=== PATIENT | male | born 1965 | race Caucasian/White ===

== ENCOUNTER 2025-08-28 02:14 | Inpatient (IN) | payer MEDICARE, OTHER ==
[~2025-08-28] VITALS: Ht 175.3 cm; Wt 69.5 kg
[2025-08-28] MEDS ORDERED: METHADONE HCL 10 MG TABLET ONE (05:26)
[2025-08-28 05:34] LABS: PLATELET COUNT (AUTO) 141 K/uL (150-450); RED BLOOD CELL COUNT(AUTO) 4.68 MIL/uL (4.50-5.90); RED CELL DISTRIBUTION WIDTH 15.8 % (11.5-14.5); WHITE BLOOD COUNT (AUTO) 3.1 K/uL (4.5-11.0)
[2025-08-28 05:38] LABS: RBC MORPHOLOGY COMMENT ABNORMAL RBC MORPH
[2025-08-28] MEDS: SODIUM CHLORIDE 0.9% 1,000 ML IV ONE (05:39)
[2025-08-28] MEDS: METHADONE HCL 10 MG TABLET PO ONE (05:39)
[2025-08-28 05:50] LABS: CALCIUM, TOTAL 8.7 mg/dL (8.8-10.5); CREATININE 0.64 mg/dL (0.60-1.30); GLOMERULAR FILTR. RATE CALC > 60 mL/min (>60); GLUCOSE,RANDOM 344 mg/dL (70-110); SODIUM SERUM 132 mmol/L (136-145); UREA NITROGEN, BLOOD 13 mg/dL (7-18)
[2025-08-28] MEDS: INSULIN REGULAR, HUMAN 100 UNITS/ML SQ ONE (06:55)
[2025-08-28] MEDS: SODIUM CHLORIDE 0.9% 2,400 ML IV ONE (06:58)
[2025-08-28 07:24] LABS: APPEARANCE,URINE CLEAR (CLEAR); GLUCOSE, URINE (UA) >=1000 mg/dL (NEGATIVE); LEUKOCYTE ESTERASE ,URINE NEGATIVE (NEGATIVE); NITRATE,URINE NEGATIVE (NEGATIVE); OCCULT BLOOD,URINE SMALL (NEGATIVE); SPECIFIC GRAVITIY, URINE 1.034 (1.003-1.030)
[2025-08-28] MEDS ORDERED: ALPR-709 PO (07:50)
[2025-08-28] MEDS ORDERED: DEXTROSE 50%-WATER 25 GM/50 ML SYRINGE IVP PRN (08:45)
[2025-08-28] MEDS: DOCUSATE SODIUM 100 MG CAPSULE PO SCH (09:47)
[2025-08-28] MEDS: RINGERS SOLUTION,LACTATED 1,000 ML IV ONE (09:48)
[2025-08-28] MEDS: INSULIN GLARGINE,HUM.REC.ANLOG 100 UNITS/ML SQ SCH (09:53)
[2025-08-28 10:33] LABS: GLUCOMETER DEV NAME(LOC) ER.7; GLUCOSE,POINT OF CARE 239 MG/DL (70-110)
[2025-08-28] MEDS: ACETAMINOPHEN 325 MG TABLET PO PRN (14:44)
[2025-08-28] MEDS: HEPARIN SODIUM,PORCINE 5,000 UNITS/ML VIAL SQ SCH (15:42)
[2025-08-28 16:21] VITALS: BP 154/81; PULSE 54; RESP 19; TEMP 97.7; O2SAT 98
[2025-08-28] MEDS: INSULIN LISPRO 100 UNITS/ML SQ PRN (17:53)
[2025-08-28] MEDS: ONDANSETRON HCL 4 MG/2 ML VIAL IVP PRN (19:43)
[2025-08-28 20:04] VITALS: BP 158/72; PULSE 51; RESP 18; TEMP 97.7; O2SAT 97
[2025-08-28] MEDS: GABAPENTIN 300 MG CAPSULE PO ONE (21:02)
[2025-08-28] MEDS: PROCHLORPERAZINE EDISYLATE 5 MG/ML 2 ML VIAL IVP ONE (21:27)
[2025-08-28 23:36] LABS: GLUCOMETER DEV NAME(LOC) 6N.1C; GLUCOSE,POINT OF CARE 261 MG/DL (70-110)
[2025-08-28 23:36] LABS: GLUCOMETER DEV NAME(LOC) 6N.1C; GLUCOSE,POINT OF CARE 235 MG/DL (70-110)
[2025-08-29 08:00] VITALS: BP 155/78; PULSE 66; RESP 20; TEMP 99.1; O2SAT 98
[2025-08-29 08:59] LABS: PLATELET COUNT (AUTO) 178 K/uL (150-450); RED BLOOD CELL COUNT(AUTO) 4.98 MIL/uL (4.50-5.90); RED CELL DISTRIBUTION WIDTH 16.1 % (11.5-14.5); WHITE BLOOD COUNT (AUTO) 5.5 K/uL (4.5-11.0)
[2025-08-29 09:17] LABS: CALCIUM, TOTAL 8.5 mg/dL (8.8-10.5); CREATININE 0.50 mg/dL (0.60-1.30); GLOMERULAR FILTR. RATE CALC > 60 mL/min (>60); GLUCOSE,RANDOM 259 mg/dL (70-110); SODIUM SERUM 135 mmol/L (136-145); UREA NITROGEN, BLOOD 10 mg/dL (7-18)
[2025-08-29 10:09] LABS: RBC MORPHOLOGY COMMENT ABNORMAL RBC MORPH
[2025-08-29] MEDS: SODIUM CHLORIDE 0.9% 1,000 ML IV SCH (10:53)
[2025-08-29 13:45] LABS: GLUCOMETER DEV NAME(LOC) 6N.1C; GLUCOSE,POINT OF CARE 322 MG/DL (70-110)
[2025-08-29 18:51] LABS: GLUCOMETER DEV NAME(LOC) 6N.1C; GLUCOSE,POINT OF CARE 211 MG/DL (70-110)
[2025-08-29 20:00] VITALS: BP 158/73; PULSE 60; RESP 18; TEMP 98.4; O2SAT 100
[2025-08-30] MEDS ORDERED: SODIUM CHLORIDE 0.9% 250 ML IV ONE (00:13)
[2025-08-30] MEDS: LORazepam 2 MG/ML VIAL IVP ONE (00:54)
[2025-08-30] MEDS ORDERED: ZOLPIDEM TARTRATE 10 MG TABLET PO PRN (01:00)
[2025-08-30 04:00] VITALS: BP 159/80; PULSE 65; RESP 20; TEMP 98.3; O2SAT 95
[2025-08-30 07:10] LABS: GLUCOMETER DEV NAME(LOC) 6N.1C; GLUCOSE,POINT OF CARE 227 MG/DL (70-110)
[2025-08-30 07:10] LABS: GLUCOMETER DEV NAME(LOC) 6N.1C; GLUCOSE,POINT OF CARE 285 MG/DL (70-110)
[2025-08-30 07:18] LABS: PLATELET COUNT (AUTO) 217 K/uL (150-450); RED BLOOD CELL COUNT(AUTO) 5.74 MIL/uL (4.50-5.90); RED CELL DISTRIBUTION WIDTH 16.3 % (11.5-14.5); WHITE BLOOD COUNT (AUTO) 6.9 K/uL (4.5-11.0)
[2025-08-30 07:29] LABS: CALCIUM, TOTAL 9.0 mg/dL (8.8-10.5); CREATININE 0.61 mg/dL (0.60-1.30); GLOMERULAR FILTR. RATE CALC > 60 mL/min (>60); GLUCOSE,RANDOM 241 mg/dL (70-110); SODIUM SERUM 137 mmol/L (136-145); UREA NITROGEN, BLOOD 21 mg/dL (7-18)
[2025-08-30 07:53] LABS: RBC MORPHOLOGY COMMENT ABNORMAL RBC MORPH
[2025-08-30] MEDS ORDERED: INSULIN REGULAR, HUMAN 100 UNITS/ML IVP PRN (10:15)
[2025-08-30] MEDS ORDERED: POTASSIUM CHLORIDE 40 MEQ in SODIUM CHLORIDE 0.45% 1,000 ML IV PRN (10:15)
[2025-08-30] MEDS ORDERED: POTASSIUM CHL 20 MEQ/0.45% NS 1,000 ML IV PRN (10:15)
[2025-08-30] MEDS ORDERED: SODIUM CHLORIDE 0.45% 1,000 ML IV PRN (10:15)
[2025-08-30] MEDS ORDERED: SODIUM CHLORIDE 0.9% 500 ML IV ONE ×3 (10:15→12:30)
[2025-08-30] MEDS ORDERED: INSULIN REGULAR, HUMAN 100 UNITS/ML IVP ONE (10:15)
[2025-08-30] MEDS ORDERED: DEXTROSE 50%-WATER 25 GM/50 ML SYRINGE IVP PRN ×2 (10:15→16:45)
[2025-08-30 10:47] LABS: PLATELET COUNT (AUTO) 206 K/uL (150-450); RED BLOOD CELL COUNT(AUTO) 5.60 MIL/uL (4.50-5.90); RED CELL DISTRIBUTION WIDTH 16.5 % (11.5-14.5); WHITE BLOOD COUNT (AUTO) 6.6 K/uL (4.5-11.0)
[2025-08-30 10:53] LABS: CALCIUM, TOTAL 8.6 mg/dL (8.8-10.5); CREATININE 0.58 mg/dL (0.60-1.30); GLOMERULAR FILTR. RATE CALC > 60 mL/min (>60); GLUCOSE,RANDOM 261 mg/dL (70-110); SODIUM SERUM 137 mmol/L (136-145); UREA NITROGEN, BLOOD 24 mg/dL (7-18)
[2025-08-30 10:58] LABS: ASPARTATE AMINOTRANSFERASE 24 U/L (15-37); TOTAL PROTEIN, SERUM 9.0 g/dL (6.4-8.2)
[2025-08-30 11:00] LABS: ABG METHEMOGLOBIN 0.2 % (0.0-1.5); FRACTIONATED INSPIRED OXYGEN 21.0 % (21-100.0); SOURCE, BLOOD GAS ARTERIAL; TEMPERATURE, FAHRENHEIT, BG 98.2 FAHREN (96.0-98.6)
[2025-08-30] MEDS: SODIUM CHLORIDE 0.9% 1,000 ML IV SCH (11:05)
[2025-08-30 11:09] LABS: ABG BASE EXCESS -6.8 mmol/L (-2.0-3.0); ABG CARBOXYHEMOGLOBIN 1.1 % (0.5-1.5); ABG HCO3 20.3 mmol/L (21.0-28.0); ABG OXYGEN CONTENT 20.0 mL/dL (15.0-23.0); ABG OXYGEN SATURATION 98.0 % (94.0-98.0); ABG OXYHEMOGLOBIN 96.7 % (94.0-98.0); ABG PCO2 27 mmHg (32.0-48.0); ABG PH 7.429 (7.350-7.450); ABG TOTAL HEMOGLOBIN 14.6 G/dL (13.5-17.5); PO2, ARTERIAL BG 105.0 mmHg (83.0-108.0)
[2025-08-30 11:11] LABS: ABG A-A DIFF O2 12.4 mmHg (10-20.0); ALLEN TEST, BLOOD GAS Positive; O2 DEVICE,BLOOD GAS ROOM AIR (ROOM AIR); SITE, BLOOD GAS LFT RADIAL
[2025-08-30 11:12] LABS: PATIENT RATE, BG 24.0 min.
[2025-08-30] MEDS ORDERED: DEXMEDETOMIDINE 400 MCG/NS 100 ML IV ONE (11:26)
[2025-08-30] MEDS: DEXMEDETOMIDINE 400 MCG/NS 100 ML IV PRN (11:31)
[2025-08-30] MEDS: INSULIN REGULAR, HUMAN 100 UNITS in SODIUM CHLORIDE 0.9% 99 ML IV PRN (11:44)
[2025-08-30] MEDS: POTASSIUM CHL 10 MEQ/WATER 50 ML IV PRN (11:48)
[2025-08-30 12:00] VITALS: BP 185/98; PULSE 77; PULSE 85; RESP 23; TEMP 98.2; O2SAT 100
[2025-08-30 12:30] LABS: GLUCOMETER DEV NAME(LOC) ICUN.7; GLUCOSE,POINT OF CARE 255 MG/DL (70-110)
[2025-08-30 12:30] LABS: GLUCOMETER DEV NAME(LOC) ICUN.7; GLUCOSE,POINT OF CARE 263 MG/DL (70-110)
[2025-08-30] MEDS: DEXTROSE 5%-0.45% SODIUM CHL 1,000 ML IV PRN (13:00)
[2025-08-30 14:35] LABS: GLUCOMETER DEV NAME(LOC) 6N.2C; GLUCOSE,POINT OF CARE 247 MG/DL (70-110)
[2025-08-30 15:39] LABS: CALCIUM, TOTAL 8.3 mg/dL (8.8-10.5); CREATININE 0.52 mg/dL (0.60-1.30); GLOMERULAR FILTR. RATE CALC > 60 mL/min (>60); GLUCOSE,RANDOM 75 mg/dL (70-110); SODIUM SERUM 141 mmol/L (136-145); UREA NITROGEN, BLOOD 22 mg/dL (7-18)
[2025-08-30 15:42] LABS: PHOSPHORUS 2.4 mg/dL (2.5-4.9)
[2025-08-30 16:00] VITALS: BP 150/77; PULSE 63; PULSE 64; RESP 24; TEMP 99.6; O2SAT 100
[2025-08-30 16:41] LABS: GLUCOMETER DEV NAME(LOC) ICU.S7; GLUCOSE,POINT OF CARE 213 MG/DL (70-110)
[2025-08-30 16:41] LABS: GLUCOMETER DEV NAME(LOC) ICU.S7; GLUCOSE,POINT OF CARE 75 MG/DL (70-110)
[2025-08-30 16:41] LABS: GLUCOMETER DEV NAME(LOC) ICU.S7; GLUCOSE,POINT OF CARE 81 MG/DL (70-110)
[2025-08-30 16:41] LABS: GLUCOMETER DEV NAME(LOC) ICU.S7; GLUCOSE,POINT OF CARE 122 MG/DL (70-110)
[2025-08-30] MEDS ORDERED: POTASSIUM CHLORIDE 40 MEQ in SODIUM CHLORIDE 0.45% 1,000 ML IV ONE (17:00)
[2025-08-30] MEDS: POTASSIUM CHLORIDE 40 MEQ in SODIUM CHLORIDE 0.45% 1,000 ML IV SCH (17:05)
[2025-08-30 17:46] LABS: GLUCOMETER DEV NAME(LOC) ICU.S7; GLUCOSE,POINT OF CARE 111 MG/DL (70-110)
[2025-08-30 19:25] LABS: CALCIUM, TOTAL 8.0 mg/dL (8.8-10.5); CREATININE 0.57 mg/dL (0.60-1.30); GLOMERULAR FILTR. RATE CALC > 60 mL/min (>60); GLUCOSE,RANDOM 182 mg/dL (70-110); PHOSPHORUS 3.8 mg/dL (2.5-4.9); SODIUM SERUM 139 mmol/L (136-145); UREA NITROGEN, BLOOD 24 mg/dL (7-18)
[2025-08-30] MEDS: INSULIN LISPRO 100 UNITS/ML SQ PRN (19:40)
[2025-08-30 19:46] LABS: GLUCOMETER DEV NAME(LOC) ICU.S7; GLUCOSE,POINT OF CARE 209 MG/DL (70-110)
[2025-08-30 20:00] VITALS: BP 168/88; PULSE 58; RESP 29; TEMP 97.8; O2SAT 100
[2025-08-30] MEDS: ETHYL ALCOHOL 62% ANTISEPTIC NASAL SANITIZER 0.6 ML AMPUL NASAL SCH (20:02)
[2025-08-30 20:55] LABS: GLUCOMETER DEV NAME(LOC) 6N.1C; GLUCOSE,POINT OF CARE 260 MG/DL (70-110)
[2025-08-30] MEDS ORDERED: ZOLPIDEM TARTRATE 5 MG TABLET PO PRN (20:57)
[2025-08-30 23:42] LABS: CALCIUM, TOTAL 8.2 mg/dL (8.8-10.5); CREATININE 0.57 mg/dL (0.60-1.30); GLOMERULAR FILTR. RATE CALC > 60 mL/min (>60); GLUCOSE,RANDOM 193 mg/dL (70-110); SODIUM SERUM 138 mmol/L (136-145); UREA NITROGEN, BLOOD 22 mg/dL (7-18)
[2025-08-30 23:46] LABS: PHOSPHORUS 3.3 mg/dL (2.5-4.9)
[2025-08-30 23:46] LABS: GLUCOMETER DEV NAME(LOC) ICU.S7; GLUCOSE,POINT OF CARE 191 MG/DL (70-110)
[2025-08-31] VITALS: BP 166/93; PULSE 56; RESP 20; TEMP 98; O2SAT 100
[2025-08-31] MEDS: POTASSIUM CHL 10 MEQ/WATER 50 ML IV PRN (00:27)
[2025-08-31] MEDS: SODIUM CHLORIDE 0.9% 1,000 ML IV SCH (00:57)
[2025-08-31 04:00] VITALS: BP 177/67; PULSE 62; RESP 22; TEMP 97.8; O2SAT 100
[2025-08-31 05:36] LABS: GLUCOMETER DEV NAME(LOC) ICUN.7; GLUCOSE,POINT OF CARE 171 MG/DL (70-110)
[2025-08-31 06:06] LABS: PLATELET COUNT (AUTO) 150 K/uL (150-450); RED BLOOD CELL COUNT(AUTO) 5.23 MIL/uL (4.50-5.90); RED CELL DISTRIBUTION WIDTH 16.3 % (11.5-14.5); WHITE BLOOD COUNT (AUTO) 4.7 K/uL (4.5-11.0)
[2025-08-31 06:14] LABS: RBC MORPHOLOGY COMMENT ABNORMAL RBC MORPH
[2025-08-31 06:16] LABS: CALCIUM, TOTAL 7.8 mg/dL (8.8-10.5); CREATININE 0.60 mg/dL (0.60-1.30); GLOMERULAR FILTR. RATE CALC > 60 mL/min (>60); GLUCOSE,RANDOM 194 mg/dL (70-110); SODIUM SERUM 138 mmol/L (136-145); UREA NITROGEN, BLOOD 20 mg/dL (7-18)
[2025-08-31 08:00] VITALS: BP 173/91; PULSE 59; RESP 20; TEMP 98.1; O2SAT 100
[2025-08-31] MEDS: *CLINICAL-PERIPHERAL PARENTERAL NUTRITION DOSING CLINICAL ONE (10:21)
[2025-08-31 12:00] VITALS: BP 174/95; PULSE 79; PULSE 91; RESP 18; TEMP 98.8; O2SAT 100
[2025-08-31 12:26] LABS: GLUCOMETER DEV NAME(LOC) ICUN.7; GLUCOSE,POINT OF CARE 212 MG/DL (70-110)
[2025-08-31 15:34] LABS: CALCIUM, TOTAL 8.6 mg/dL (8.8-10.5); CREATININE 0.55 mg/dL (0.60-1.30); GLOMERULAR FILTR. RATE CALC > 60 mL/min (>60); GLUCOSE,RANDOM 237 mg/dL (70-110); SODIUM SERUM 136 mmol/L (136-145); UREA NITROGEN, BLOOD 23 mg/dL (7-18)
[2025-08-31 15:37] LABS: PHOSPHORUS 3.4 mg/dL (2.5-4.9)
[2025-08-31 16:00] VITALS: BP 168/92; PULSE 85; RESP 12; TEMP 98.1; O2SAT 100
[2025-08-31 17:30] LABS: GLUCOMETER DEV NAME(LOC) 5N.2C; GLUCOSE,POINT OF CARE 236 MG/DL (70-110)
[2025-08-31 19:45] VITALS: BP 157/79; PULSE 88; RESP 16; TEMP 97.7; O2SAT 97
[2025-08-31 20:41] LABS: CALCIUM, TOTAL 8.4 mg/dL (8.8-10.5); CREATININE 0.75 mg/dL (0.60-1.30); GLOMERULAR FILTR. RATE CALC > 60 mL/min (>60); GLUCOSE,RANDOM 248 mg/dL (70-110); SODIUM SERUM 135 mmol/L (136-145); UREA NITROGEN, BLOOD 27 mg/dL (7-18)
[2025-08-31 21:07] LABS: PHOSPHORUS 3.3 mg/dL (2.5-4.9)
[2025-08-31 23:40] LABS: CALCIUM, TOTAL 8.4 mg/dL (8.8-10.5); CREATININE 0.56 mg/dL (0.60-1.30); GLOMERULAR FILTR. RATE CALC > 60 mL/min (>60); GLUCOSE,RANDOM 255 mg/dL (70-110); SODIUM SERUM 135 mmol/L (136-145); UREA NITROGEN, BLOOD 27 mg/dL (7-18)
[2025-09-01 00:28] LABS: PHOSPHORUS 3.6 mg/dL (2.5-4.9)
[2025-09-01 00:29] VITALS: BP 168/87; PULSE 86; RESP 18; TEMP 97.9; O2SAT 99
[2025-09-01] MEDS: PPN SOLUTION 1 EA, SODIUM CHLORIDE 70 MEQ, SODIUM PHOS,M-BASIC-D-BASIC 30 MEQ, POTASSIU... IV SCH (01:44)
[2025-09-01 03:36] VITALS: BP 181/93; PULSE 90; RESP 17; TEMP 98.1; O2SAT 98
[2025-09-01 06:01] LABS: GLUCOMETER DEV NAME(LOC) 5N.2C; GLUCOSE,POINT OF CARE 265 MG/DL (70-110)
[2025-09-01 07:32] LABS: PLATELET COUNT (AUTO) 180 K/uL (150-450); RED BLOOD CELL COUNT(AUTO) 5.82 MIL/uL (4.50-5.90); RED CELL DISTRIBUTION WIDTH 16.7 % (11.5-14.5); WHITE BLOOD COUNT (AUTO) 7.1 K/uL (4.5-11.0)
[2025-09-01 07:56] LABS: CALCIUM, TOTAL 8.6 mg/dL (8.8-10.5); CREATININE 0.68 mg/dL (0.60-1.30); GLOMERULAR FILTR. RATE CALC > 60 mL/min (>60); GLUCOSE,RANDOM 303 mg/dL (70-110); SODIUM SERUM 134 mmol/L (136-145); UREA NITROGEN, BLOOD 32 mg/dL (7-18)
[2025-09-01 07:59] LABS: PHOSPHORUS 3.6 mg/dL (2.5-4.9)
[2025-09-01 08:31] VITALS: BP 174/87; PULSE 92; RESP 18; TEMP 97.7; O2SAT 98
[2025-09-01 10:02] LABS: PH,URINE DRUG SCREEN 5.5 (5.0-8.0)
[2025-09-01 10:12] LABS: ALCOHOL, URINE DRUG SCREEN NEGATIVE (NEGATIVE); AMPHET/METH SCREEN,URINE NEGATIVE (NEGATIVE); BARBITURATE SCREEN, URINE NEGATIVE (NEGATIVE); CANNABINOID SCREEN,URINE NEGATIVE (NEGATIVE); COCAINE SCREEN,URINE NEGATIVE (NEGATIVE); METHADONE SCREEN, URINE NEGATIVE (NEGATIVE)
[2025-09-01 10:45] LABS: GLUCOMETER DEV NAME(LOC) 5N.1D; GLUCOSE,POINT OF CARE 275 MG/DL (70-110)
[2025-09-01 11:46] VITALS: BP 176/100; PULSE 91; RESP 20; TEMP 97.7; O2SAT 96
[2025-09-01 14:36] LABS: GLUCOMETER DEV NAME(LOC) 5N.2C; GLUCOSE,POINT OF CARE 347 MG/DL (70-110)
[2025-09-01 16:22] VITALS: BP 170/82; PULSE 89; RESP 20; TEMP 97.9; O2SAT 96
[2025-09-01 18:15] LABS: GLUCOMETER DEV NAME(LOC) 5N.1D; GLUCOSE,POINT OF CARE 336 MG/DL (70-110)
[2025-09-01 20:20] VITALS: BP 140/99; PULSE 95; RESP 19; TEMP 97.7; O2SAT 97
[2025-09-01 22:01] LABS: GLUCOMETER DEV NAME(LOC) 5N.1D; GLUCOSE,POINT OF CARE 325 MG/DL (70-110)
[2025-09-01] MEDS: SODIUM CHLORIDE IV SCH (23:13)
[2025-09-01] MEDS: SODIUM PHOS M BASIC D BASIC IV SCH (23:13)
[2025-09-01] MEDS: PPN IV SCH (23:13)
[2025-09-01] MEDS: [UNRECOGNIZED DRUG - OTHER] IV SCH (23:13)
[2025-09-02] VITALS (7 sets, daily range): BP systolic 146–171; BP diastolic 71–84; PULSE 77–98; RESP 18–28; TEMP 97.9–98.4; O2SAT 97–99
[2025-09-02 05:06] LABS: GLUCOMETER DEV NAME(LOC) 5N.1D; GLUCOSE,POINT OF CARE 241 MG/DL (70-110)
[2025-09-02 06:21] LABS: GLUCOMETER DEV NAME(LOC) 5N.1D; GLUCOSE,POINT OF CARE 280 MG/DL (70-110)
[2025-09-02 07:08] LABS: PHOSPHORUS 3.5 mg/dL (2.5-4.9)
[2025-09-02 07:19] LABS: CALCIUM, TOTAL 8.0 mg/dL (8.8-10.5); CREATININE 0.43 mg/dL (0.60-1.30); GLOMERULAR FILTR. RATE CALC > 60 mL/min (>60); GLUCOSE,RANDOM 287 mg/dL (70-110); SODIUM SERUM 136 mmol/L (136-145); UREA NITROGEN, BLOOD 30 mg/dL (7-18)
[2025-09-02 19:51] LABS: GLUCOMETER DEV NAME(LOC) 5S.1E; GLUCOSE,POINT OF CARE 289 MG/DL (70-110)
[2025-09-02 19:51] LABS: GLUCOMETER DEV NAME(LOC) 5S.1E; GLUCOSE,POINT OF CARE 259 MG/DL (70-110)
[2025-09-02 20:16] LABS: GLUCOMETER DEV NAME(LOC) 5S.1E; GLUCOSE,POINT OF CARE 290 MG/DL (70-110)
[2025-09-02] MEDS: INSULIN GLARGINE,HUM.REC.ANLOG 100 UNITS/ML SQ SCH (20:37)
[2025-09-03] VITALS (12 sets, daily range): BP systolic 141–175; BP diastolic 65–83; PULSE 79–98; RESP 17–28; TEMP 97.9–99.3; O2SAT 96–99
[2025-09-03] MEDS: IPRATROPIUM BROMIDE 0.5 MG/2.5 ML NEB SOLUTION NEB PRN (02:43)
[2025-09-03 06:59] LABS: CALCIUM, TOTAL 8.1 mg/dL (8.8-10.5); CREATININE 0.49 mg/dL (0.60-1.30); GLOMERULAR FILTR. RATE CALC > 60 mL/min (>60); GLUCOSE,RANDOM 268 mg/dL (70-110); SODIUM SERUM 133 mmol/L (136-145); UREA NITROGEN, BLOOD 25 mg/dL (7-18)
[2025-09-03 07:15] LABS: PHOSPHORUS 3.0 mg/dL (2.5-4.9)
[2025-09-03 08:34] LABS: PLATELET COUNT (AUTO) 148 K/uL (150-450); RED BLOOD CELL COUNT(AUTO) 4.90 MIL/uL (4.50-5.90); RED CELL DISTRIBUTION WIDTH 16.3 % (11.5-14.5); WHITE BLOOD COUNT (AUTO) 6.9 K/uL (4.5-11.0)
[2025-09-03 09:55] LABS: RBC MORPHOLOGY COMMENT ABNORMAL RBC MORPH
[2025-09-03] MEDS: *CLINICAL-LEVOFLOXACIN IVPB DOSING CLINICAL ONE (10:59)
[2025-09-03] MEDS ORDERED: SODIUM CHLORIDE 0.9% 250 ML IV ONE (11:54)
[2025-09-03] MEDS: LEVOFLOXACIN 750 MG/D5% WATER 150 ML IV SCH (12:22)
[2025-09-03] MEDS: GABAPENTIN 100 MG CAPSULE PO SCH (14:54)
[2025-09-03 20:50] LABS: GLUCOMETER DEV NAME(LOC) 5S.2E; GLUCOSE,POINT OF CARE 269 MG/DL (70-110)
[2025-09-03 20:50] LABS: GLUCOMETER DEV NAME(LOC) 5S.2E; GLUCOSE,POINT OF CARE 260 MG/DL (70-110)
[2025-09-03] MEDS: PPN IV SCH (21:58)
[2025-09-03] MEDS: SODIUM CHLORIDE IV SCH (21:58)
[2025-09-03] MEDS: SODIUM PHOS M BASIC D BASIC IV SCH (21:58)
[2025-09-03] MEDS: [UNRECOGNIZED DRUG - OTHER] IV SCH (21:58)
[2025-09-03 22:56] LABS: GLUCOMETER DEV NAME(LOC) 5N.1D; GLUCOSE,POINT OF CARE 293 MG/DL (70-110)
[2025-09-03 23:23] LABS: C.DIFF GDH ANTIGEN, Stool Positive (Negative); C.DIFF TOXINS A&B, Stool Negative (Negative)
[2025-09-03 23:46] LABS: GLUCOMETER DEV NAME(LOC) 5S.1E; GLUCOSE,POINT OF CARE 253 MG/DL (70-110)
[2025-09-04] VITALS: BP 150/63; PULSE 83; RESP 20; TEMP 99.3; O2SAT 99
[2025-09-04 04:00] VITALS: BP 147/64; PULSE 84; RESP 20; TEMP 99; O2SAT 97
[2025-09-04 06:07] LABS: PLATELET COUNT (AUTO) 119 K/uL (150-450); RED BLOOD CELL COUNT(AUTO) 4.69 MIL/uL (4.50-5.90); RED CELL DISTRIBUTION WIDTH 15.9 % (11.5-14.5); WHITE BLOOD COUNT (AUTO) 4.2 K/uL (4.5-11.0)
[2025-09-04 06:11] LABS: GLUCOMETER DEV NAME(LOC) 5S.2E; GLUCOSE,POINT OF CARE 255 MG/DL (70-110)
[2025-09-04 06:13] LABS: CALCIUM, TOTAL 7.8 mg/dL (8.8-10.5); CREATININE 0.37 mg/dL (0.60-1.30); GLOMERULAR FILTR. RATE CALC > 60 mL/min (>60); GLUCOSE,RANDOM 246 mg/dL (70-110); SODIUM SERUM 135 mmol/L (136-145); UREA NITROGEN, BLOOD 13 mg/dL (7-18)
[2025-09-04 06:14] LABS: PHOSPHORUS 2.7 mg/dL (2.5-4.9)
[2025-09-04 06:29] LABS: RBC MORPHOLOGY COMMENT ABNORMAL RBC MORPH
[2025-09-04 08:35] VITALS: BP 139/74; PULSE 80; RESP 18; TEMP 99.1; O2SAT 95
[2025-09-04 11:51] VITALS: BP 136/77; PULSE 80; RESP 18; TEMP 99.1; O2SAT 96
[2025-09-04] MEDS: VANCOMYCIN HCL 125 MG/2.5 ML SOLUTION ORAL.SYG PO SCH (14:02)
[2025-09-04 16:20] VITALS: BP 137/86; PULSE 79; RESP 19; TEMP 99; O2SAT 97
[2025-09-04 20:55] VITALS: BP 106/59; PULSE 94; RESP 18; TEMP 98.4; O2SAT 98
[2025-09-04 22:36] LABS: GLUCOMETER DEV NAME(LOC) 5S.1E; GLUCOSE,POINT OF CARE 252 MG/DL (70-110)
[2025-09-05] MEDS: PPN IV SCH (00:56)
[2025-09-05] MEDS: SODIUM PHOS M BASIC D BASIC IV SCH (00:56)
[2025-09-05] MEDS: [UNRECOGNIZED DRUG - OTHER] IV SCH (00:56)
[2025-09-05] MEDS: SODIUM CHLORIDE IV SCH (00:56)
[2025-09-05] MEDS: LORazepam 2 MG/ML VIAL IM ONE (01:44)
[2025-09-05 04:21] VITALS: BP 153/85; PULSE 77; RESP 18; TEMP 97.9; O2SAT 100
[2025-09-05 05:06] LABS: GLUCOMETER DEV NAME(LOC) 5N.2C; GLUCOSE,POINT OF CARE 336 MG/DL (70-110)
[2025-09-05 08:00] VITALS: BP 150/86; PULSE 86; RESP 18; TEMP 98.6; O2SAT 98
[2025-09-05 08:55] LABS: CALCIUM, TOTAL 8.3 mg/dL (8.8-10.5); CREATININE 0.47 mg/dL (0.60-1.30); GLOMERULAR FILTR. RATE CALC > 60 mL/min (>60); GLUCOSE,RANDOM 245 mg/dL (70-110); SODIUM SERUM 135 mmol/L (136-145); UREA NITROGEN, BLOOD 14 mg/dL (7-18)
[2025-09-05 08:59] LABS: PHOSPHORUS 3.0 mg/dL (2.5-4.9)
[2025-09-05 12:00] VITALS: BP 132/82; PULSE 103; RESP 0; TEMP 98.2; O2SAT 99
[2025-09-05] MEDS: RINGERS SOLUTION,LACTATED 1,000 ML IV ONE (12:15)
[2025-09-05 16:41] VITALS: BP 144/85; PULSE 79; RESP 19; TEMP 97.5; O2SAT 98
[2025-09-05 21:00] VITALS: BP 142/78; PULSE 81; RESP 19; TEMP 97.5; O2SAT 97
[2025-09-05] MEDS ORDERED: SODIUM CHLORIDE IV SCH (22:00)
[2025-09-05] MEDS ORDERED: SODIUM PHOS M BASIC D BASIC IV SCH (22:00)
[2025-09-05] MEDS ORDERED: [UNRECOGNIZED DRUG - OTHER] IV SCH (22:00)
[2025-09-05] MEDS ORDERED: PPN IV SCH (22:00)
[2025-09-05] MEDS ORDERED: SODIUM CHLORIDE 0.9% 1,000 ML ONE (22:38)
[2025-09-05] MEDS: 1: MAGNESIUM SULFATE 2 GM, MVI, ADULT NO.1 WITH VIT K 10 ML, THIAMINE 100 MG, FOLIC ACID IV SCH (22:40)
[2025-09-05 23:58] VITALS: BP 134/84; PULSE 84; RESP 18; TEMP 97.9; O2SAT 99
[2025-09-06 05:35] VITALS: BP 152/88; PULSE 86; RESP 18; TEMP 98.1; O2SAT 100
[2025-09-06 06:51] LABS: GLUCOMETER DEV NAME(LOC) 5S.1E; GLUCOSE,POINT OF CARE 256 MG/DL (70-110)
[2025-09-06 06:51] LABS: GLUCOMETER DEV NAME(LOC) 5S.1E; GLUCOSE,POINT OF CARE 311 MG/DL (70-110)
[2025-09-06 07:03] LABS: CALCIUM, TOTAL 7.9 mg/dL (8.8-10.5); CREATININE 0.45 mg/dL (0.60-1.30); GLOMERULAR FILTR. RATE CALC > 60 mL/min (>60); GLUCOSE,RANDOM 244 mg/dL (70-110); SODIUM SERUM 135 mmol/L (136-145); UREA NITROGEN, BLOOD 11 mg/dL (7-18)
[2025-09-06 07:33] LABS: PLATELET COUNT (AUTO) 144 K/uL (150-450); RED BLOOD CELL COUNT(AUTO) 4.83 MIL/uL (4.50-5.90); RED CELL DISTRIBUTION WIDTH 15.9 % (11.5-14.5); WHITE BLOOD COUNT (AUTO) 6.5 K/uL (4.5-11.0)
[2025-09-06 08:14] LABS: PHOSPHORUS 3.1 mg/dL (2.5-4.9)
[2025-09-06 08:46] LABS: RBC MORPHOLOGY COMMENT ABNORMAL RBC MORPH
[2025-09-06 11:12] VITALS: BP 143/76; PULSE 93; RESP 18; TEMP 99; O2SAT 98
[2025-09-06 11:50] LABS: GLUCOMETER DEV NAME(LOC) 6N.1C; GLUCOSE,POINT OF CARE 322 MG/DL (70-110)
[2025-09-06] MEDS: INSULIN GLARGINE,HUM.REC.ANLOG 100 UNITS/ML SQ SCH (17:23)
[2025-09-06 17:26] LABS: GLUCOMETER DEV NAME(LOC) 6N.1C; GLUCOSE,POINT OF CARE 294 MG/DL (70-110)
[2025-09-06 19:39] VITALS: BP 136/69; PULSE 81; RESP 18; TEMP 98.1; O2SAT 97
[2025-09-06 21:06] LABS: GLUCOMETER DEV NAME(LOC) 6N.2C; GLUCOSE,POINT OF CARE 338 MG/DL (70-110)
[2025-09-07 05:56] LABS: GLUCOMETER DEV NAME(LOC) 6N.1C; GLUCOSE,POINT OF CARE 191 MG/DL (70-110)
[2025-09-07 06:06] LABS: PLATELET COUNT (AUTO) 152 K/uL (150-450); RED BLOOD CELL COUNT(AUTO) 5.02 MIL/uL (4.50-5.90); RED CELL DISTRIBUTION WIDTH 15.8 % (11.5-14.5); WHITE BLOOD COUNT (AUTO) 4.1 K/uL (4.5-11.0)
[2025-09-07 06:27] LABS: RBC MORPHOLOGY COMMENT ABNORMAL RBC MORPH
[2025-09-07 06:35] LABS: CALCIUM, TOTAL 8.0 mg/dL (8.8-10.5); CREATININE 0.35 mg/dL (0.60-1.30); GLOMERULAR FILTR. RATE CALC > 60 mL/min (>60); GLUCOSE,RANDOM 198 mg/dL (70-110); SODIUM SERUM 137 mmol/L (136-145); UREA NITROGEN, BLOOD 9 mg/dL (7-18)
[2025-09-07 08:00] VITALS: BP 148/77; PULSE 75; RESP 19; TEMP 99.5; O2SAT 97
[2025-09-07] MEDS ORDERED: INSLAN SQ (15:10)
[2025-09-07] MEDS ORDERED: AMLO-258 PO (15:10)
[2025-09-07] MEDS ORDERED: VANC250C13 PO (15:13)
[2025-09-07] MEDS ORDERED: CARV3 PO (15:13)
[2025-09-07 16:55] LABS: GLUCOMETER DEV NAME(LOC) 6N.1C; GLUCOSE,POINT OF CARE 259 MG/DL (70-110)
[2025-09-07 19:54] VITALS: BP 130/72; PULSE 80; RESP 18; TEMP 97.9; O2SAT 98
[2025-09-07 21:16] LABS: GLUCOMETER DEV NAME(LOC) 6N.1C; GLUCOSE,POINT OF CARE 349 MG/DL (70-110)
[2025-09-07 21:16] LABS: GLUCOMETER DEV NAME(LOC) 6N.1C; GLUCOSE,POINT OF CARE 265 MG/DL (70-110)
[2025-09-08 06:31] LABS: GLUCOMETER DEV NAME(LOC) 6N.2C; GLUCOSE,POINT OF CARE 260 MG/DL (70-110)
[2025-09-08] MEDS ORDERED: INSULIN GLARGINE,HUM.REC.ANLOG 100 UNITS/ML SQ SCH (09:00)
== END 2025-09-08 06:12 | DRG 637 ==
LOC: EMS 02:18 → EDH 08:36 → 6S 14:00 → ICU 08-30 10:20 → 5N 08-31 13:30 → 6S 09-06 07:00
PROVIDERS: ADMIT Internal Medicine; ATTEND Internal Medicine
PROC: GZ58ZZZ Individual Psychotherapy, Cognitive-Behavioral (ICD-10-PCS; principal; 2025-08-29)
PROC: GZ56ZZZ Individual Psychotherapy, Supportive (ICD-10-PCS; 2025-08-29)
PROC: 05HC33Z Insertion of Infusion Device into Left Basilic Vein, Percutaneous Approach (ICD-10-PCS; 2025-08-30)
PROC: B54NZZA Ultrasonography of Left Upper Extremity Veins, Guidance (ICD-10-PCS; 2025-08-30)
PROC: 05H933Z Insertion of Infusion Device into Right Brachial Vein, Percutaneous Approach (ICD-10-PCS; 2025-08-30)
PROC: B54MZZA Ultrasonography of Right Upper Extremity Veins, Guidance (ICD-10-PCS; 2025-08-30)
DX: E11.65 Type 2 diabetes mellitus with hyperglycemia (principal); E11.10 Type 2 diabetes mellitus with ketoacidosis without coma; G93.41 Metabolic encephalopathy; J69.0 Pneumonitis due to inhalation of food and vomit; A04.72 Enterocolitis due to Clostridium difficile, not specified as recurrent; E87.6 Hypokalemia; R00-R99 Symptoms, signs and abnormal clinical and laboratory findings, not elsewhere classified; I10 Essential (primary) hypertension; F41.9 Anxiety disorder, unspecified; F11.10 Opioid abuse, uncomplicated; E11.649 Type 2 diabetes mellitus with hypoglycemia without coma; F43.10 Post-traumatic stress disorder, unspecified; Z53.20 Procedure and treatment not carried out because of patient's decision for unspecified reasons; F14.90 Cocaine use, unspecified, uncomplicated; I95.9 Hypotension, unspecified; R41.0 Disorientation, unspecified; Z88.5 Allergy status to narcotic agent; Z91.148 Patient's other noncompliance with medication regimen for other reason; Z88.8 Allergy status to other drugs, medicaments and biological substances
CPT/HCPCS: 36569; 71045; 71046; 76770; 76937; 80048; 80053; 80307; 81001; 82009; 82805; 82962; 83735; 84100; 84132; 85025; 87081; 87324; 87449; 93005; 94640; 97116; 97162; 97530; 99285; J0360; J0610; J0780; J1630; J1644; J1815; J1956; J2060; J2405; J3411; J3475; J3480; J3490; J7030; J7040; J7050; J7070; J7120; J7131; 36415-L1; 36415-TC; X7700

== ENCOUNTER 2025-09-08 12:42 | Inpatient (IN) | payer OTHER ==
[~2025-09-08] VITALS: Ht 172.7 cm; Wt 67.0 kg
[~2025-09-08 12:42] MED LIST: AMLO-258 PO; CARV3 PO; INSLAN SQ; VANC250C13 PO
[2025-09-08 14:12] LABS: PLATELET COUNT (AUTO) 202 K/uL (150-450); RED BLOOD CELL COUNT(AUTO) 4.96 MIL/uL (4.50-5.90); RED CELL DISTRIBUTION WIDTH 16.0 % (11.5-14.5); WHITE BLOOD COUNT (AUTO) 4.7 K/uL (4.5-11.0)
[2025-09-08] MEDS ORDERED: DEXTROSE 50%-WATER 25 GM/50 ML SYRINGE IVP PRN (14:15)
[2025-09-08] MEDS ORDERED: MAGNESIUM HYDROXIDE SUSPENSION 30 ML UDCUP PO PRN (14:15)
[2025-09-08 14:21] LABS: CALCIUM, TOTAL 8.2 mg/dL (8.8-10.5); CREATININE 0.69 mg/dL (0.60-1.30); GLOMERULAR FILTR. RATE CALC > 60 mL/min (>60); GLUCOSE,RANDOM 270 mg/dL (70-110); SODIUM SERUM 133 mmol/L (136-145); UREA NITROGEN, BLOOD 17 mg/dL (7-18)
[2025-09-08 14:31] LABS: LACTIC ACID 0.6 mmol/L (0.4-2.0); TROPONIN I-HIGH SENSITIVITY 9 ng/L (<76)
[2025-09-08 14:34] LABS: ACETONE,BLOOD 1:8 (NEGATIVE); RBC MORPHOLOGY COMMENT ABNORMAL RBC MORPH
[2025-09-08] MEDS: SODIUM CHLORIDE 0.9% 2,000 ML IV ONE (15:55)
[2025-09-08] MEDS: HEPARIN SODIUM,PORCINE 5,000 UNITS/ML VIAL SQ SCH (15:55)
[2025-09-08 17:05] LABS: APPEARANCE,URINE CLEAR (CLEAR); GLUCOSE, URINE (UA) >=1000 mg/dL (NEGATIVE); LEUKOCYTE ESTERASE ,URINE NEGATIVE (NEGATIVE); NITRATE,URINE NEGATIVE (NEGATIVE); OCCULT BLOOD,URINE NEGATIVE (NEGATIVE); SPECIFIC GRAVITIY, URINE 1.023 (1.003-1.030)
[2025-09-08 17:20] LABS: SQUAMOUS EPITHELIAL CELL,UR Rare /LPF (None Seen)
[2025-09-08] MEDS: INSULIN LISPRO 100 UNITS/ML SQ PRN (18:25)
[2025-09-08] MEDS: INSULIN LISPRO 100 UNITS/ML SQ ONE (18:45)
[2025-09-08 18:47] VITALS: BP 146/74; PULSE 77; RESP 18; TEMP 98.1; O2SAT 100
[2025-09-08 19:51] LABS: GLUCOMETER DEV NAME(LOC) 6N.2C; GLUCOSE,POINT OF CARE 421 MG/DL (70-110)
[2025-09-08 20:30] VITALS: BP 140/90; PULSE 79; RESP 18; TEMP 98.2; O2SAT 99
[2025-09-08] MEDS ORDERED: INSULIN GLARGINE,HUM.REC.ANLOG 100 UNITS/ML SQ SCH (21:00)
[2025-09-08] MEDS: INSULIN GLARGINE,HUM.REC.ANLOG 100 UNITS/ML SQ SCH (21:10)
[2025-09-08] MEDS: VANCOMYCIN HCL 125 MG/2.5 ML SOLUTION ORAL.SYG PO SCH (21:11)
[2025-09-09 05:45] VITALS: BP 122/63; PULSE 73; RESP 18; TEMP 98.1; O2SAT 97
[2025-09-09 07:11] LABS: GLUCOMETER DEV NAME(LOC) 6N.1C; GLUCOSE,POINT OF CARE 185 MG/DL (70-110)
[2025-09-09 07:11] LABS: GLUCOMETER DEV NAME(LOC) 6N.1C; GLUCOSE,POINT OF CARE 237 MG/DL (70-110)
[2025-09-09] MEDS: FAMOTIDINE 20 MG TABLET PO SCH (08:23)
[2025-09-09 08:35] VITALS: BP 139/82; PULSE 75; RESP 17; TEMP 99; O2SAT 98
[2025-09-09 12:26] LABS: GLUCOMETER DEV NAME(LOC) 6N.1C; GLUCOSE,POINT OF CARE 196 MG/DL (70-110)
[2025-09-09 18:01] LABS: GLUCOMETER DEV NAME(LOC) 6N.1C; GLUCOSE,POINT OF CARE 282 MG/DL (70-110)
[2025-09-09 20:30] VITALS: BP 163/89; PULSE 76; RESP 18; TEMP 98.4; O2SAT 99
[2025-09-09 23:46] LABS: GLUCOMETER DEV NAME(LOC) 6N.1C; GLUCOSE,POINT OF CARE 211 MG/DL (70-110)
[2025-09-10 05:40] VITALS: BP 150/92; PULSE 71; RESP 18; TEMP 97.9; O2SAT 100
[2025-09-10 08:11] VITALS: BP 146/78; PULSE 76; RESP 18; TEMP 98.6; O2SAT 98
[2025-09-10 11:11] LABS: GLUCOMETER DEV NAME(LOC) 6N.1C; GLUCOSE,POINT OF CARE 299 MG/DL (70-110)
[2025-09-10 14:36] LABS: GLUCOMETER DEV NAME(LOC) 6N.1C; GLUCOSE,POINT OF CARE 353 MG/DL (70-110)
[2025-09-10 16:33] LABS: PLATELET COUNT (AUTO) 168 K/uL (150-450); RED BLOOD CELL COUNT(AUTO) 4.84 MIL/uL (4.50-5.90); RED CELL DISTRIBUTION WIDTH 15.7 % (11.5-14.5); WHITE BLOOD COUNT (AUTO) 4.8 K/uL (4.5-11.0)
[2025-09-10 16:41] LABS: CALCIUM, TOTAL 8.0 mg/dL (8.8-10.5); CREATININE 0.65 mg/dL (0.60-1.30); GLOMERULAR FILTR. RATE CALC > 60 mL/min (>60); GLUCOSE,RANDOM 133 mg/dL (70-110); SODIUM SERUM 137 mmol/L (136-145); UREA NITROGEN, BLOOD 13 mg/dL (7-18)
[2025-09-10 20:05] LABS: GLUCOMETER DEV NAME(LOC) 6N.1C; GLUCOSE,POINT OF CARE 304 MG/DL (70-110)
[2025-09-10 20:45] VITALS: BP 130/67; PULSE 79; RESP 18; TEMP 97.9; O2SAT 98
[2025-09-10] MEDS ORDERED: POTASSIUM CHL 10 MEQ/WATER 50 ML IV PRN (21:30)
[2025-09-10] MEDS: POTASSIUM CHLORIDE 20 MEQ ER TABLET PO PRN (21:42)
[2025-09-11 05:15] VITALS: BP 123/68; PULSE 70; RESP 18; TEMP 97.9; O2SAT 99
[2025-09-11 07:15] LABS: GLUCOMETER DEV NAME(LOC) 6N.2C; GLUCOSE,POINT OF CARE 217 MG/DL (70-110)
[2025-09-11 10:11] LABS: GLUCOMETER DEV NAME(LOC) 6N.2C; GLUCOSE,POINT OF CARE 270 MG/DL (70-110)
[2025-09-11 13:31] LABS: GLUCOMETER DEV NAME(LOC) 6N.2C; GLUCOSE,POINT OF CARE 210 MG/DL (70-110)
[2025-09-11 19:53] VITALS: BP 151/91; PULSE 77; RESP 18; TEMP 98.1; O2SAT 96
[2025-09-11 20:16] LABS: GLUCOMETER DEV NAME(LOC) 6N.2C; GLUCOSE,POINT OF CARE 206 MG/DL (70-110)
[2025-09-11] MEDS: INSULIN GLARGINE,HUM.REC.ANLOG 100 UNITS/ML SQ SCH (21:21)
[2025-09-12] MEDS: ZOLPIDEM TARTRATE 5 MG TABLET PO PRN (01:27)
[2025-09-12 04:51] VITALS: BP 130/69; PULSE 70; RESP 18; TEMP 97.9; O2SAT 100
[2025-09-12 04:56] LABS: GLUCOMETER DEV NAME(LOC) 6N.2C; GLUCOSE,POINT OF CARE 173 MG/DL (70-110)
[2025-09-12 08:00] VITALS: BP 130/80; PULSE 75; RESP 20; TEMP 98.6; O2SAT 99
[2025-09-12] MEDS ORDERED: VANC125C12 PO (13:04)
[2025-09-12] MEDS ORDERED: INSLAN SQ (13:06)
[2025-09-12] MEDS: ACETAMINOPHEN 325 MG TABLET PO PRN (16:06)
[2025-09-12 20:10] VITALS: BP 121/64; PULSE 80; RESP 18; TEMP 97.9; O2SAT 99
[2025-09-13 04:10] LABS: GLUCOMETER DEV NAME(LOC) 6N.2C; GLUCOSE,POINT OF CARE 220 MG/DL (70-110)
[2025-09-13 04:10] LABS: GLUCOMETER DEV NAME(LOC) 6N.2C; GLUCOSE,POINT OF CARE 283 MG/DL (70-110)
[2025-09-13 04:10] LABS: GLUCOMETER DEV NAME(LOC) 6N.2C; GLUCOSE,POINT OF CARE 237 MG/DL (70-110)
[2025-09-13 04:10] LABS: GLUCOMETER DEV NAME(LOC) 6N.2C; GLUCOSE,POINT OF CARE 243 MG/DL (70-110)
[2025-09-13 04:10] LABS: GLUCOMETER DEV NAME(LOC) 6N.2C; GLUCOSE,POINT OF CARE 152 MG/DL (70-110)
[2025-09-13 04:29] VITALS: BP 128/65; PULSE 80; RESP 18; TEMP 98.2; O2SAT 99
[2025-09-13 17:41] LABS: GLUCOMETER DEV NAME(LOC) 6N.2C; GLUCOSE,POINT OF CARE 237 MG/DL (70-110)
== END 2025-09-13 06:43 | DRG 371 ==
LOC: EMS 12:46 → EDH 14:07 → 6S 18:10
PROVIDERS: ADMIT Internal Medicine; ATTEND Internal Medicine
DX: A04.72 Enterocolitis due to Clostridium difficile, not specified as recurrent (principal); E11.10 Type 2 diabetes mellitus with ketoacidosis without coma; E11.40 Type 2 diabetes mellitus with diabetic neuropathy, unspecified; I10 Essential (primary) hypertension; F43.10 Post-traumatic stress disorder, unspecified; F14.90 Cocaine use, unspecified, uncomplicated; Z78.9 Other specified health status; Z88.5 Allergy status to narcotic agent; Z83.3 Family history of diabetes mellitus; Z79.4 Long term (current) use of insulin
CPT/HCPCS: 80048; 81001; 82009; 82962; 83605; 83690; 84132; 84484; 85025; 97116; 97162; 97166; 97530; 97535; 99285; J1644; J1815; 36415-L1; 36415-TC; X6366; Z7502; Z7610